=== PATIENT | male | born 2000 | race Caucasian/White ===

== ENCOUNTER 2022-07-03 11:38 | Outpatient (CLI) | payer OTHER, SELFPAY ==
[2022-07-03 22:22] LABS: HIV 1/2/P24 Combo Screen* Negative (Negative)
[2022-07-03 23:49] LABS: Chlamydia DNA Amplified* NOT DETECTED (No Detected); GC DNA Amplified* NOT DETECTED (No Detected)
== END 2022-07-03 11:39 | disposition home or self-care (01) ==
PROVIDERS: PCP Family Medicine; Visit Provider Family Medicine
DX: Z00.00 Encounter for general adult medical examination without abnormal findings (principal); Z11.3 Encounter for screening for infections with a predominantly sexual mode of transmission; F41.1 Generalized anxiety disorder
CPT/HCPCS: 86703; 87491; 87591

== ENCOUNTER 2024-07-13 14:17 | Outpatient (CLI) | payer OTHER, SELFPAY ==
--- NOTE | 2024-07-13 14:30 | MR_ITS ---
[address] [address] Phone:?[phone] Fax:?[phone] Referring Physician Information: Darrel Yee M.D. [id number] [facility] [address] Phone:?[phone] Fax:?[phone] Patient:Marquez Clifton D.O.B:?2000 Sex:?Male Phone:?[phone] [facility] MRN:?[id number] Exam Date:?07/13/2024 EXAM: MRI of the RIGHT FIFTH FINGER WITHOUT CONTRAST CLINICAL HISTORY: Ongoing right fifth finger localize swelling, mass, lump. COMPARISONS: Plain radiographs 03/16/2024 and 12/18/2014. TECHNICAL: MRI sequences of the right fifth finger: Coronals: PD, STIR, T2, T1 Axials: PD, PD FS, T2 Sagittals: T2, PD Sedation: None Contrast: None FINDINGS: Bones: No fracture is seen. There is osseous remodeling of the fifth proximal phalanx. Joints: No subluxation, dislocation, or joint effusion. Tendons: No flexor or extensor tendon tendinopathy, tear, or tenosynovitis. Collateral ligaments: Intact collateral ligaments. There is extensive low signal surrounding the proximal portion of the fifth proximal phalangeal diaphysis extending distally to the proximal phalangeal head measuring 2.3 cm in length by 1.2 cm in AP dimension by 1.3 cm in transverse dimension. IMPRESSION: Extensive low signal surrounding the proximal portion of the fifth proximal phalangeal diaphysis and extending distally to the proximal phalangeal head measuring 2.3 x 1.2 x 1.3 cm. Differential considerations include localized-type tenosynovial giant cell tumor (giant cell tumor of tendon sheath) and sequela of gout although the findings are not specific. Other neoplastic etiologies are not excluded. Associated osseous remodeling of the fifth proximal phalanx. Postcontrast imaging could be obtained for further evaluation (axial T1 fat-sat precontrast, axial T1 fat-sat postcontrast, and sagittal T1 fat sat postcontrast sequences would be recommended if postcontrast imaging is ordered). Ultimately, biopsy may be appropriate to obtain a definitive diagnosis. RCB Electronically signed on 07/14/2024 10:23:00 AM by Armando Wilson M.D.
== END 2024-07-13 14:18 | disposition home or self-care (01) ==
LOC: MRI 14:18
PROVIDERS: PCP Physician Assistant Medical; Visit Provider Orthopaedic Surgery
DX: R22.31 Localized swelling, mass and lump, right upper limb (principal)
CPT/HCPCS: 73218

== ENCOUNTER 2024-08-05 15:13 | Outpatient (CLI) | payer OTHER, SELFPAY ==
--- NOTE | 2024-08-05 15:30 | MR_ITS ---
[address] [address] Phone:?[phone] Fax:?[phone] Referring Physician Information: Darrel Yee M.D. [id number] [facility] [address] Phone:?[phone] Fax:?[phone] Patient:Marquez Clifton D.O.B:?2000 Sex:?Male Phone:?[phone] [facility] MRN:?[id number] Exam Date:?08/05/2024 EXAM: MRI OF THE RIGHT FIFTH FINGER, WITH AND WITHOUT CONTRAST CLINICAL: Evaluate right fifth finger mass. COMPARISONS: MRI 07/13/2024. X-rays 03/16/2024. TECHNICAL: Multiplanar multisequence MRI of the right fifth finger was obtained with and without contrast. SEDATION: None. CONTRAST: 20 mL of dotarem was injected intravenously. FINDINGS: Prominent low signal changes/lesion is again seen to surround the fifth digit proximal phalanx as demonstrated on the recent MRI examination, with associated osseous remodeling of the fifth digit proximal phalanx similar to prior examination. This does demonstrate enhancement on the postcontrast imaging. No evidence of new internal derangement when compared to the recent MRI exam on 07/13/2024. IMPRESSION: 1. Enhancement of the previously identified low signal changes/lesion about the fifth digit proximal phalanx concerning for neoplasia. Recommend follow-up with direct tissue sampling. ERNESTO Electronically signed on 08/06/2024 8:01:00 AM by Bart Roa D.O.
== END 2024-08-05 15:14 | disposition home or self-care (01) ==
LOC: MRI 15:13
PROVIDERS: PCP Physician Assistant Medical; Visit Provider Orthopaedic Surgery
DX: R22.31 Localized swelling, mass and lump, right upper limb (principal)
CPT/HCPCS: 73220; A9575

== ENCOUNTER 2024-11-08 14:39 | Outpatient (CLI) | payer OTHER, SELFPAY | END 2024-11-08 14:40 | disposition home or self-care (01) | LOC: LKVREF 14:40 | PROVIDERS: PCP Physician Assistant Medical; Visit Provider Emergency Medicine | DX: F10.90 Alcohol use, unspecified, uncomplicated (principal) | CPT/HCPCS: 80053 ==

== ENCOUNTER 2025-05-08 15:47 | Outpatient (CLI) | payer OTHER, SELFPAY | END 2025-05-08 15:48 | disposition home or self-care (01) | LOC: NFLDREF 05-12 07:59 | PROVIDERS: PCP Physician Assistant Medical; Referring Provider Physician Assistant Medical; Visit Provider Physician Assistant Medical | DX: R10.32 Left lower quadrant pain (principal); K52.9 Noninfective gastroenteritis and colitis, unspecified | CPT/HCPCS: 80053; 80061; 84443 ==

== ENCOUNTER 2025-06-02 06:09 | Day surgery (SDC) | payer OTHER, SELFPAY ==
[2025-06-02 06:27] VITALS: BMI 28.0
[2025-06-02] MEDS: LACTATED RINGERS 500 ML 500 ML 100 ML IV (07:00)
[2025-06-02 07:03] VITALS: BP 132/75; PULSE 79; RESP 16; TEMP 37.1; O2SAT 97
[2025-06-02] MEDS: SODIUM CHLORIDE 0.9 % (FLUSH) 10 ML SYRINGE IVF (07:03)
--- NOTE | 2025-06-02 07:14 | W.PM.H&PU ---
History & Physical Update History & Physical Update H&P Reviewed and patient assessed: No changes noted
--- NOTE | 2025-06-02 07:15 | P.ORPRC_ITS ---
Procedure Note Date of procedure: 06/02/25 Procedure: PREOPERATIVE DIAGNOSIS: 1. Left hand extensor tendon ganglion cyst POSTOPERATIVE DIAGNOSIS: 1. Left hand extensor tenosynovitis PROCEDURE: 1. Left hand extensor tenosynovectomy SURGEON: Tico Yee MD. SAFETY GLASS INSTALLER: Kat Parish P.A.-C. An assistant floor covering printer was critical for this case to aid in patient positioning, tissue retraction, limb manipulation/positioning, and closure. ANESTHESIA: Local anesthetic with monitored anesthesia care IMPLANTS: None ESTIMATED BLOOD LOSS: 0 mL TOURNIQUET: 19 min at 250 mmHg COMPLICATIONS: None FINDINGS: Subcutaneous soft tissue mass consistent with localized thickening of the extensor tenosynovium involving the tendons to the middle and ring fingers. SPECIMEN: Subcutaneous soft tissue mass measuring less than 0.5 cm in diameter consistent with extensor tendon synovitis sent for pathology. INDICATIONS: The patient is a pleasant 24 with history of mass on the dorsal aspect of his hand. Symptoms were not improving with conservative treatment, and patient elected to proceed with surgical intervention consisting of left hand extensor tendon cyst excision. Prior to surgery, the risks and benefits of the procedure were discussed with patient, all questions were answered, and informed consent was obtained. DESCRIPTION OF PROCEDURE: Patient was seen preoperatively and operative site was marked. He was then brought to the operating room and placed in supine position or table. Monitored anesthesia care was provided by anesthesia staff and patient was given 2 g IV Ancef preoperatively for prophylaxis. A tourniquet placed the patient's left upper extremity, and the left upper extremities prepped and draped in usual sterile fashion. A surgical time-out was performed confirming patient name, procedure, and location. Subcutaneous tissues were injected with 0.25% Marcaine with epinephrine. The operative extremity was then elevated and exsanguinated with an Esmarch, and the tourniquet was inflated to 250 mmHg. A skin incision measuring approximately 2 cm was made transversely on the dorsum of the hand over the underlying subcutaneous soft tissue mass. Blunt dissection was used to dissect through subcutaneous tissues and the extensor tendons were identified. The soft tissue mass was identified and was noted to be localized thickening of the tenosynovium of the extensor tendons to the middle and ring fingers. Thickened tenosynovium was dissected away from the surrounding soft tissues and extensor tendon and subsequently excised. Care was taken to protect the extensor tendons. Excised tenosynovium was then sent for pathology. After removal of thickened tenosynovium, there was noted to be palpable thickening of the remnant extensor tendon at this area but no additional subcutaneous masses were identified. Tourniquet was then released. Total tourniquet time was 19 minutes. The wound was then irrigated with normal saline, and no significant bleeding was identified. The incision was closed with 3-0 Vicryl inverted, interrupted subc utaneous stitches followed by running 3-0 Monocryl subcuticular stitch and Dermabond. Sterile dressing was applied. Patient was woken from anesthesia and transferred to recovery room in stable condition. POSTOPERATIVE PLAN: 1. Patient will be discharged to home day of surgery. 2. Ice and elevation as needed for pain and swelling. 3. Tylenol and/or ibuprofen as needed for pain. 4. They were given instructions for wound care and finger range of motion exercises. 5. Return to the clinic for follow-up evaluation in 10-14 days for wound check.
[2025-06-02] MEDS: BUPIVACAINE 0.25 %/EPI 1:200K 30 ml 10 ML INJECTION (07:38)
--- NOTE | 2025-06-02 07:39 | SUR.OPER ---
PATIENT QUESTIONS ANSWERED SATISFACTORILY PREOPERATIVELY. PATIENT BROUGHT TO OR #3 PER CART. Patient positioned supine on OR #3 bed. The perioperative team supported right arms bilaterally on arm boards. Final approval of positioning by surgeon. 1 UNDER THE HEAD AND 1 UNDER THE KNEES POSITIONING PER G.E.
[2025-06-02 08:18] VITALS: BP 119/61; PULSE 76; RESP 16; TEMP 36.2; O2SAT 96
--- NOTE | 2025-06-02 08:23 | P.ANES_ITS ---
Anesthesia Charges Start Date/Time Anesthesia Start Date: 06/02/25 Anesthesia Start Time: 07:18 Stop Date/Time Anesthesia Stop Date: 06/02/25 Anesthesia Stop Time: 08:21 Coding CPT Codes CPT Codes: ANESTH LOWER ARM SURGERY - 32344 ([id number]) P3 - PATIENT W/SEVERE SYS DISEASE, QZ - DIRECTOR [employer] SVC W/O CONTACT LENS EDGE BUFFER BY
--- NOTE | 2025-06-02 08:23 | W.ANESCHARGE ---
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
[2025-06-02 08:30] VITALS: BP 114/77; PULSE 64; RESP 16; O2SAT 98
[2025-06-02 08:45] VITALS: BP 128/83; PULSE 62; RESP 16; O2SAT 98
[2025-06-02 09:00] VITALS: BP 124/80; PULSE 61; RESP 16; O2SAT 98
[2025-06-02 09:15] VITALS: BP 129/83; PULSE 70; RESP 16; O2SAT 97
--- NOTE | 2025-06-02 09:45 | SUR.PHASEII ---
left hand dressing c/d/i. Pt tolerated pop, yogurt and pudding. Denies pain in left hand. Left hand numb. Reviewed D/C instructions with pt and girlfriend. All questions answered. Pt ambulated out to car with girlfriend.
== END 2025-06-02 09:46 | disposition home or self-care (01) ==
LOC: OR 06:11
PROVIDERS: PCP Physician Assistant Medical; Visit Provider Orthopaedic Surgery
PROC: (CPT 26145; principal; 2025-06-02 07:15)
DX: M65.842 Other synovitis and tenosynovitis, left hand (principal)
CPT/HCPCS: 26145; 01810; 88305; 88313; J0690; J1100; J2250; J2405; J2704; J3010; J3490; J7120